=== PATIENT | female | born 1935 | race Caucasian/White ===

== ENCOUNTER 2017-10-13 11:24 | Inpatient (IN) | payer MEDICARE, MEDICAID ==
[2017-10-13 12:16] LABS: % BASOPHILS 0.4 % (0.0-2.0); % EOSINOPHILS 1.2 % (0.0-5.0); % LYMPHOCYTES 12.6 % (20.0-50.0); % MONOCYTES 3.1 % (2.0-10.0); % NEUTROPHILS 82.7 % (40.0-80.0); EOSINOPHILE ABSOLUTE 0.1 Th/cmm (0.1-0.4); HEMATOCRIT 37.4 % (41.0-60); HEMOGLOBIN 12.1 gm/dL (12-16); LYMPHOCYTE ABSOLUTE 0.9 Th/cmm (1.5-3.0); MEAN CELL VOLUME 87.2 fl (81-100); MEAN CORPUSCULAR HEMOGLOBIN 28.2 pg (27.0-31.0); MEAN CORPUSCULAR HGB CONC 32.3 pg (28.0-36.0); MEAN PLATELET VOLUME 7.8 fl; MONOCYTE ABSOLUTE 0.2 Th/cmm (0.3-1.0); NEUTROPHILE ABSOLUTE 6.3 Th/cmm (1.8-8.0); PLATELET COUNT 242 Th/cmm (150-400); RED BLOOD COUNT 4.28 Mil/cmm (3.80-5.20); RED CELL DISTRIBUTION WIDTH 12.5 % (11.5-20.0); WHITE BLOOD COUNT 7.5 Th/cmm (4.8-10.8)
--- NOTE | 2017-10-13 13:07 | ED Physician Chart ---
ED Chief Complaint/HPI - Patient Information Date Seen:: 10/13/17 Time Seen:: 11:35 Chief Complaint:: Agitation History of Present Illness:: onset x 2 days of agitation and hostile behavior; no reports of SIs, trauma, H/ As, neck pain, C/P, SOB, Abd. pain, A/N/V/D/C, fever, chills, or urinary s/s Allergies:: Allergies Allergy/AdvReac Type Severity Reaction Status Date / Time No Known Allergies Allergy Verified 10/13/17 11:34 Vitals:: Vital Signs - 8 hr 10/13/17 11:34 Temp 97.5 F HR 102 RR 17 BP 132/90 O2 Sat % 94 Historian:: Patient, EMS Review:: Nurse's Note Reviewed, Old Chart Reviewed, EMS run form Reviewed ED Review of Systems - Review of Systems General/Constitutional: No fever, No chills, No weight loss, No weakness, No diaphoresis, No edema, No loss of appetite Skin: No skin lesions, No rash, No bruising Head: No headache, No light-headedness Eyes: No loss of vision, No pain, No diplopia ENT: No earache, No nasal drainage, No sore throat, No tinnitus Neck: No neck pain, No swelling, No thyromegaly, No stiffness, No mass noted Cardio Vascular: No chest pain, No palpitations, No PND, No orthopnea, No edema Pulmonary: No SOB, No cough, No sputum, No wheezing GI: No nausea, No vomiting, No diarrhea, No pain, No melena, No hematochezia, No constipation, No hematemesis G/U: No dysuria, No frequency, No hematuria, No nacturia Operator Assistant I Cementing: No vaginal discharge, No abnormal vaginal bleed, No contraction Musculoskeletal: No bone or joint pain, No back pain, No muscle pain Endocrine: No polyuria, No polydipsia Psychiatric: Prior psych history, No depression, Anxiety, No suicidal ideation, No homicidal ideation, Auditory hallucination, No visual hallucination Hematopoietic: No bruising, No lymphadenopathy Allergic/Immuno: No urticaria, No angioedema Neurological: No syncope, No focal symptoms, No weakness, No paresthesia, No headache, No seizure, No dizziness, No confusion, No vertigo ED Past Medical History - Past Medical History Obtainable: Yes Past Medical History: Dyslipidemia, Thyroid disorder, Dementia Family History: Diabetes Melitus, HTN Social History: Non Smoker, No Alcohol, No Drug Use, Single, Care Facility Surgical History: None Psychiatricy History: Schizophrenia, Bipolar, Dementia Medication: Reviewed Family Medical History - Family Member Mother Living Status: ED Physical Exam - Physical Examination General/Constitutional: Awake, Well-developed, well-nourished, Alert, No distress, GCS 15, Non-toxic appearing, Ambulatory Head: Atraumatic Eyes: Lids, conjuctiva normal, PERRL, EOMI Skin: Nl inspection, No rash, No skin lesions, No ecchymosis, Well hydrated, No lymphadenopathy ENMT: External ears, nose nl, TM canals nl, Nasal exam nl, Lips, teeth, gums nl , Oropharynx nl, Tonsils nl Neck: Nontender, Full ROM w/o pain, No JVD, No nuchal rigidity, No bruit, No mass, No stridor Respiratory: Nl effort/Exclusion, Clear to Auscultation, No Wheeze/Rhonchi/Rales Cardio Vascular: RRR, No murmur, gallop, rubs, NL S1 S2, Carotid/Femoral/Distal pulses equal bilaterally GI: No tenderness/rebounding/guarding, No organomegaly, No hernia, Normal BS's, Nondistended, No mass/bruits, No McBurney tenderness : No CVA tenderness Extremities: No tenderness or effusion, Full ROM, normal strength in all extremities, No edema, Normal digits & nails Neuro/Psych: Alert/oriented, DTR's symmetric, Normal sensory exam, Normal motor strength, Judgement/insight normal, Mood normal, Normal gait, No focal deficits Other Neuro/Psych comments:: + Psychomotor Agitation; Mood/Affect: Stable; no SIs Misc: Normal back, No paraspinal tenderness ED Labs/Radiology/EKG Results - Lab Results Results: Laboratory Tests 10/13/17 12:00 WBC 7.5 RBC 4.28 Hgb 12.1 Hct 37.4 L MCV 87.2 MCH 28.2 MCHC Differential 32.3 RDW 12.5 Plt Count 242 MPV 7.8 Neutrophils % 82.7 H Lymphocytes % 12.6 L Monocytes % 3.1 Eosinophils % 1.2 Basophils % 0.4 Comments:: Cr: 2.1 - EKG Interpretations EKG Time:: 11:50 Rate & Rhythm: 74; NSR Comments:: non-specific st-t changes ED Septic Shock - . Is Septic Shock (SBP<90, OR Lactate>4 mmol\L) present?: No - <6hrs of presentation: Vital Signs: Vital Signs - 8 hr 10/13/17 11:34 Temp 97.5 F HR 102 RR 17 BP 132/90 O2 Sat % 94 ED Reassessment (Disposition) - Reassessment Reassessment Condition:: Improved - Diagnosis Diagnosis:: Medical Clearance; Bipolar Disorder; Psychosis; Agitation - Aftercare/Follow up Instructions Aftercare/Follow-Up Instructions:: Counseled pt regarding lab results/diagnosis & need follow up, Counseled pt & family regarding lab results/diagnosis & need follow up - Patient Disposition Discharge/Transfer:: Acute Care w/in this hosp Accepting Physician:: Dr. Mccormick Time Called:: 1300 Time Responded:: 13:00 Admitted to:: [facility] Spoke to:: Dr. Mccormick Admitting Medical Physician:: Dr. Mccormick Admitting Psych Physician:: Dr. Wilson Condition at Disposition:: Stable, Improved ED Discharge Plan - Patient Disposition
[2017-10-13 13:42] LABS: POTASSIUM SERUM 4.2 mEq/L (3.5-5.1); SODIUM SERUM 141 mEq/L (136-145)
[2017-10-13 13:43] LABS: ALB/GLOB RATIO 0.8 (1.0-1.8); ALBUMIN 3.6 gm/dL (3.7-5.3); ANION GAP 18.2 (7.0-16.0); BILIRUBIN,TOTAL 0.7 mg/dL (0.3-1.0); BUN - UREA NITROGEN 29 mg/dL (7-25); CHLORIDE 106 mEq/L (98-107); CREATININE - SERUM 2.1 mg/dL (0.6-1.2); GLUCOSE 181 mg/dL (70-105); SGOT 22 U/L (13-39); TOTAL PROTEIN,SERUM 8.2 gm/dL (6.0-8.3)
[2017-10-13 13:44] LABS: ALKALINE PHOSPHATASE 99 U/L (34-104); CHOLESTEROL 175 mg/dL (<200); HDL -HIGH DENSITY LIPOPROTEIN 38 mg/dL (23-92); SGPT/ALT 23 U/L (7-52); TRIGLYCERIDES 159 mg/dL (<150)
[2017-10-13 13:45] LABS: ACETAMINOPHEN < 10.0 ug/mL (10.0-30.0); SALICYLATES (ASPIRIN) < 25.0 mg/L (30.0-100.0)
[2017-10-13 16:21] VITALS: BP 132/90
[2017-10-13 16:38] LABS: A1C % 9.6 % (4.0-6.0)
--- NOTE | 2017-10-13 20:36 | Psychosocial Evaluation ---
DATE OF SERVICE: 10/13/2017 CHIEF COMPLAINT: "I am fine." HISTORY OF PRESENT ILLNESS: The patient is an 82-year-old female with a history of dementia and psychosis was referred from [facility] facility for increased anger outburst, agitation and confusion. The patient said she is sad because she is trying to see her father and nobody is listening to her. The patient is a poor historian and occasionally becomes argumentative. Interview was done mostly in Nigerien. Nigerien speaking nursing staff helped. PAST PSYCHIATRIC HISTORY: Dementia and psychosis. PAST MEDICAL HISTORY: Refer to H and P. PSYCHOSOCIAL HISTORY: The patient resides at a [facility] facility requires complete care. MENTAL STATUS EXAMINATION: The patient is superficial. Speech is fluent in Nigerien. Affect is dysphoric, irritable, some paranoia was noticed. The patient is talking to herself. The patient is oriented to person, knew she was in some kind of hospital, did not know the name of the hospital, thought she was 41 years old. The patient is confused. The patient is passively accepting treatment. The patient's weakness, lack of insight. ASSESSMENT: Major depressive disorder with psychosis; dementia, Alzheimer's type. MEDICAL: As per medical history. PLAN: We will admit the patient for hospitalization. We will start individual and group therapy and assess psychopharmacological intervention. ESTIMATED LENGTH OF STAY: 7 to 8 days. CRITERIA FOR DISCHARGE: Improved condition. No agitation, no psychosis and safe disposition, outpatient treatment plan. [facility]# [id number]
[2017-10-14] MEDS: Escitalopram Oxalate 5 mg Tab PO SCH (08:43)
[2017-10-14] MEDS: Multivitamin Tab PO SCH (08:44)
[2017-10-14] MEDS ORDERED: Non-Formulary Item 1 EA (Cranberry [Cranberry] 400 MG) PO SCH (10:00)
[2017-10-14] MEDS: Ferrous Sulfate 325 MG TAB PO SCH (10:55)
[2017-10-14] MEDS: Levothyroxine 0.025 Mg Tab PO SCH ×2 (11:39→17:17)
[2017-10-14] MEDS: LOVASTATIN 40 MG PO SCH (11:48)
[2017-10-14] MEDS: Non-Formulary Item 1 EA (Ascorbic Acid [Vitamin C] 500 MG) PO SCH (11:48)
[2017-10-14] MEDS ORDERED: Insulin Detemir 100 units/mL 10mL Vial SUBQ SCH (21:00)
--- NOTE | 2017-10-14 23:38 | Consultation ---
DATE OF CONSULTATION: INTERNAL MEDICINE CONSULT REFERRING PHYSICIAN: Dr. Bee. REASON FOR CONSULT: Medical management. HISTORY OF PRESENT ILLNESS: The patient is an 82-year-old female who lives at [facility] and who has the following medical problems, type 2 diabetes, chronic kidney disease, hypothyroidism, chronic anemia, dementia with behavioral disorder, and history of previous DVTs, who was transferred to the ED given agitation and inappropriate behavior for a couple of days. The patient is asleep, but arousable, but is not able to tell me any significant history. The patient has been admitted to [facility] for further management and care. PAST MEDICAL HISTORY: As noted above. PAST SURGERIES: Unknown. FAMILY HISTORY: Likely noncontributory to this admission. SOCIAL HISTORY: No tobacco, ETOH, or illicit drug usage. Currently, lives at a nursing home facility. ALLERGIES: NKDA. OUTPATIENT MEDICATIONS: Tylenol 650 q. 4 p.r.n. for pain, ascorbic acid 500 mg every day, cranberry capsule 400 every day, Colace 250 b.i.d., iron sulfate 325 every day, folic acid 1 mg every day, levothyroxine 25 mg every day, lovastatin 40 every day, Namenda 5 b.i.d. and tramadol 50 mg q. 6 p.r.n. for pain. REVIEW OF SYSTEMS: Unable to be done given patient's condition. PHYSICAL EXAMINATION: VITAL SIGNS: Temperature 98.4, pulse 66, respiratory rate 19 to 20, BP 132/79, saturating 99% on room air. GENERAL: Well-developed, well-nourished female. She is asleep, but arousable, but she is not able to provide any significant history. She is not oriented to time or place. HEAD AND NECK: Normocephalic, atraumatic. Pupils are reactive to light. Extraocular movements are intact. Oropharynx is moist and clear. NECK: There is no JVD or LAD. CARDIOVASCULAR: Regular rate with distant sounds. RESPIRATORY: Lungs are clear to auscultation bilaterally. ABDOMEN: Soft, supple, nontender, nondistended, normoactive bowel sounds. EXTREMITIES: Her lower extremities have no edema. NEUROLOGIC: Appears to be grossly intact and nonfocal. She is able to move all 4 extremities with equal force and strength. Cranial nerves 2-12 are within normal limits. LABORATORY DATA: CBC was essentially within normal limits. Hematocrit was 37.4. BUN 29, creatinine 2.1. The rest of the chemistry was normal. Glucose was 181. A1c 9.6. LFTs are within normal limits. Albumin 3.6. Triglycerides 159, cholesterol 175, LDL 109, and HDL 38. TSH within normal limits. Toxicology screen noted salicylates, acetaminophen, and alcohol were negative. DIAGNOSTICS: EKG sinus rhythm at a rate of 74, no acute findings. ASSESSMENT: 1. Acute psychiatric decompensation. 2. History of dementia with behavioral disorder. 3. History of chronic kidney disease. 4. Chronic anemia, likely secondary to above. 5. History of hypothyroidism - euthyroid prolapse. 6. History of type 2 diabetes out of control per A1c findings. 7. History of previous deep vein thrombosis. PLAN: The patient has been admitted to [facility] for further management and care. The patient will be kept on her current medications as scheduled. I will start the patient on Glucotrol at 5 mg b.i.d. and given her diabetes out of control, I will also start her on low-dose detemir. We will follow on a daily basis. JOB# [id number] DAVID
--- NOTE | 2017-10-15 01:24 | Progress Notes ---
DATE: 10/14/2017 SUBJECTIVE: The patient was seen, discussed with staff, chart reviewed, still superficial, talking to herself, remains confused, still with anger outburst and episodes of agitation. Insight is poor. Judgment is impaired. The patient also appears to be depressed, sad facial expression at times. The patient is still talking to people who were not there, thinking that something bad happened to her father and she ____ see him. ASSESSMENT: The patient is still with agitation. PLAN: We will continue supportive measure, continue stabilization, add risperidone 0.25 mg p.o. at bedtime, and monitor closely. JOB# [id number]
[2017-10-15] MEDS: Levothyroxine 0.025 Mg Tab PO SCH ×3 (06:29→18:19)
[2017-10-15] MEDS: Escitalopram Oxalate 5 mg Tab PO SCH (08:22)
[2017-10-15] MEDS: Multivitamin Tab PO SCH (08:24)
[2017-10-15] MEDS: Ferrous Sulfate 325 MG TAB PO SCH (08:25)
[2017-10-15] MEDS: Non-Formulary Item 1 EA (Ascorbic Acid [Vitamin C] 500 MG) PO SCH (08:32)
[2017-10-15] MEDS: LOVASTATIN 40 MG PO SCH (08:32)
--- NOTE | 2017-10-15 18:12 | Progress Notes ---
DATE: 10/15/2017 SUBJECTIVE: The patient was seen. Remains disorganized, guarded, still confused, some agitation, talking to herself, but her anger outbursts is little bit less today. The patient's appetite is fair. ASSESSMENT: The patient in psychotic phase. PLAN: Continue medication management and continue supportive measures. Continue Lexapro, risperidone and Namenda and monitor condition closely. JOB# [id number]
[2017-10-16] MEDS: Levothyroxine 0.025 Mg Tab PO SCH (06:35)
[2017-10-16] MEDS: Escitalopram Oxalate 5 mg Tab PO SCH (09:18)
[2017-10-16] MEDS: Multivitamin Tab PO SCH (09:19)
[2017-10-16] MEDS: Ferrous Sulfate 325 MG TAB PO SCH (09:19)
--- NOTE | 2017-10-16 09:21 | Consultation ---
DATE OF CONSULTATION: 10/15/2017 REQUESTING PHYSICIAN: Joel Salas MD. TYPE OF CONSULTATION: Psychology. HISTORY OF PRESENT ILLNESS: The following is by review of the medical record and patient self report. The patient is an 82-year-old female. According to the staff at the patient's facility, she is being admitted due to increased agitation, anger outbursts and confusion. Upon interview, the patient is stating that she needs to talk to her father. The patient became argumentative during the clinical interview. The patient is mostly Stateless speaking and a staff YOUTH PROBATION OFFICER assisted with interpretation. The patient denied any suicidal ideation, plan or intention or any wish to . The patient denies any hopelessness or helplessness. PAST MEDICAL HISTORY: Please see history and physical. PAST PSYCHIATRIC HISTORY: The patient has a history of dementia. CURRENT MEDICATIONS: Please see medication reconciliation. ALLERGIES: No known drug allergies. SUBSTANCE ABUSE HISTORY: Unavailable record. The patient did not answer this question. PSYCHOSOCIAL HISTORY: The patient is a resident of [facility] and is known to this radio script writer. The patient did not answer questions about occupational or educational history or presybeterian affiliation. However, she is a Nondenominational. MENTAL STATUS EXAMINATION: The patient appears to be her stated age. The patient's attitude is guarded and superficially cooperative. Speech is spontaneous and mostly in Stateless with some British. Eye contact is poor. Mood is irritable. Affect is sullen. Thought process shows to be confused and possibly delusional with some paranoid ideation. The patient is stating that she needs to talk to her father. The patient's behavior is passively accepting of treatment. Impulse control is poor. Concentration is poor. The patient was unable to sustain focus and attention and became tangential and at times answering with irrelevant information. The patient did not perform the memory assessment. Sensorium is alert and oriented to self only. Immediate and short term memory appeared to be impaired. Long-term memory seems to be impaired. This should be reevaluated. The patient did not participate in the interpretation of proverbs. Insight is poor. Judgment is compromised. DIAGNOSTIC IMPRESSION: AXIS I: 1. Major depressive disorder with psychosis; 2. Dementia with behavioral disturbance. AXIS II: Deferred. AXIS III: Please see history and physical. PLAN: The patient has been seen by Dr. Salas for psychiatric evaluation and management of the patient's psychotropic medications. We will provide individual therapy. This patient is known to this radio script writer from her detention facility and is under the care of a psychiatrist at her facility. We will provide coping strategies as well as motivational enhancement for the patient to become compliant with all aspects of her care and treatment. We will provide de-escalation as well as behavioral therapy to reduce the patient's anger outbursts and agitation prior to discharge. Thank you, Dr. Salas for this consult and the opportunity to participate in this patient's care. JOB# [id number] DAVID
[2017-10-16] MEDS: Non-Formulary Item 1 EA (Ascorbic Acid [Vitamin C] 500 MG) PO SCH (09:22)
[2017-10-16] MEDS: LOVASTATIN 40 MG PO SCH (09:22)
--- NOTE | 2017-10-16 22:27 | Progress Notes ---
DATE: 10/16/2017 PSYCHIATRIC PROGRESS NOTE SUBJECTIVE: Staff was spoken to. The patient is interviewed. Mood is noted to be irritable. Affect is constricted. The patient continues to be paranoid. The patient is getting easily frustrated and getting irritable. The patient has poor short as well as long-term memory deficits. No side effects to the medications are noted. The patient is screaming and yelling and needs to be redirected most of the time. No side effects to the medications are noted at this time. ASSESSMENT: The patient is still psychotic. PLAN: To continue the patient with the supportive therapy. Encouraged the patient to verbalize the concerns rather than to act out. JOB# [id number]
[2017-10-17] MEDS: Levothyroxine 0.025 Mg Tab PO SCH (06:51)
[2017-10-17] MEDS: Ferrous Sulfate 325 MG TAB PO SCH (09:42)
[2017-10-17] MEDS: Non-Formulary Item 1 EA (Ascorbic Acid [Vitamin C] 500 MG) PO SCH (09:42)
[2017-10-17] MEDS: Escitalopram Oxalate 5 mg Tab PO SCH (09:42)
[2017-10-17] MEDS: Multivitamin Tab PO SCH (09:43)
[2017-10-17] MEDS: LOVASTATIN 40 MG PO SCH (09:43)
--- NOTE | 2017-10-17 22:01 | Progress Notes ---
DATE: 10/17/2017 SUBJECTIVE: Staff was spoken to. The patient is interviewed. Mood is noted to be irritable. Affect is constricted. The patient is reluctant to comply with the medication. The patient has no insight into her illness. Coping skills at this time are noted to be very poor. ASSESSMENT: The patient is still grossly psychotic. PLAN: To encourage the patient to comply with the medication. The patient has been trying to be aggressive towards the roommate. The patient is going to be closely monitored at this time. JOB# [id number]
[2017-10-18] MEDS: Levothyroxine 0.025 Mg Tab PO SCH (06:49)
[2017-10-18] MEDS: Non-Formulary Item 1 EA (Ascorbic Acid [Vitamin C] 500 MG) PO SCH (17:27)
[2017-10-18] MEDS: Multivitamin Tab PO SCH (17:28)
[2017-10-18] MEDS: Ferrous Sulfate 325 MG TAB PO SCH (17:28)
[2017-10-18] MEDS: LOVASTATIN 40 MG PO SCH (17:28)
[2017-10-18] MEDS: Escitalopram Oxalate 5 mg Tab PO SCH (17:28)
--- NOTE | 2017-10-18 18:10 | Progress Notes ---
DATE: 10/18/2017 SUBJECTIVE: The patient was seen, discussed with staff, chart reviewed. Still forgetful, confused, irritability, some anger outburst however, she is taking her medications. Sleep and appetite are fair. Her insight is still poor. The patient is disorganized. The patient is oriented to person, not oriented to time or place. ASSESSMENT: The patient is still in psychotic phase, still confused, still irritable. PLAN: Continue medication management. Continue supportive measures. Continue stabilization. JOB# [id number]
[2017-10-19] MEDS: Levothyroxine 0.025 Mg Tab PO SCH (06:48)
[2017-10-19] MEDS: Ferrous Sulfate 325 MG TAB PO SCH (09:35)
[2017-10-19] MEDS: Multivitamin Tab PO SCH (09:35)
[2017-10-19] MEDS: Escitalopram Oxalate 5 mg Tab PO SCH (09:35)
[2017-10-19] MEDS: LOVASTATIN 40 MG PO SCH (09:36)
[2017-10-19] MEDS: Non-Formulary Item 1 EA (Ascorbic Acid [Vitamin C] 500 MG) PO SCH (09:36)
--- NOTE | 2017-10-19 19:14 | Progress Notes ---
DATE: 10/19/2017 SUBJECTIVE: The patient was seen, discussed with staff. Still anxious, irritable at times episodes talking to herself and at times refusing medications. Insight is poor. Judgment is impaired. ASSESSMENT: The patient is still highly agitated, still in psychotic phase, still confused. PLAN: Continue supportive measures, medication management. Change medicines. Use risperidone liquid 0.5 mg p.o. at bedtime. [facility]# [id number]
[2017-10-19] MEDS ORDERED: risperiDONE 1 mg/mL 30 mL Bottle PO SCH (21:00)
[2017-10-20] MEDS: Levothyroxine 0.025 Mg Tab PO SCH (06:35)
[2017-10-20] MEDS: Multivitamin Tab PO SCH (09:18)
[2017-10-20] MEDS: Escitalopram Oxalate 5 mg Tab PO SCH (09:18)
[2017-10-20] MEDS: Ferrous Sulfate 325 MG TAB PO SCH (09:19)
--- NOTE | 2017-10-20 17:19 | Progress Notes ---
DATE: 10/20/2017 SUBJECTIVE: The patient was seen, discussed with staff. Still disorganized, paranoid. Still confused, still have some anger outbursts, but less frequently now. She is compliant with her medications for the past 24 hours. She is easier to redirect. Insight is still limited. PLAN: We will continue stabilization. Continue medication management. Continue supportive measures. JOB# [id number]
[2017-10-21] MEDS: Levothyroxine 0.025 Mg Tab PO SCH (06:49)
[2017-10-21] MEDS: Ferrous Sulfate 325 MG TAB PO SCH ×2 (09:25)
[2017-10-21] MEDS: Escitalopram Oxalate 5 mg Tab PO SCH (09:25)
[2017-10-21] MEDS: Multivitamin Tab PO SCH ×3 (09:25→13:02)
[2017-10-22] MEDS: Levothyroxine 0.025 Mg Tab PO SCH (06:35)
[2017-10-22] MEDS: Ferrous Sulfate 325 MG TAB PO SCH (09:10)
[2017-10-22] MEDS: Escitalopram Oxalate 5 mg Tab PO SCH (09:10)
[2017-10-22] MEDS: Multivitamin Tab PO SCH (09:10)
--- NOTE | 2017-10-22 21:30 | Progress Notes ---
DATE: 10/22/2017 SUBJECTIVE: The patient remains irritable, anxious, still angry at times, still confused, forgetful. The patient having some episodes where she tries to hit staff, but less frequent compared to time of admission. ASSESSMENT: The patient is in a psychotic phase. PLAN: Continue medication management. The patient was started on risperidone. She was Lexapro. JOB# [id number]
[2017-10-23] MEDS: Levothyroxine 0.025 Mg Tab PO SCH (06:48)
[2017-10-23] MEDS: Escitalopram Oxalate 5 mg Tab PO SCH (08:39)
[2017-10-23] MEDS: Ferrous Sulfate 325 MG TAB PO SCH (08:41)
[2017-10-23] MEDS: Multivitamin Tab PO SCH (08:41)
[2017-10-23] MEDS: LOVASTATIN 40 MG PO SCH (08:43)
--- NOTE | 2017-10-23 17:08 | Progress Notes ---
DATE: 10/23/2017 SUBJECTIVE: Staff was spoken to. The patient is interviewed. Mood is noted to be irritable. Affect is constricted. Continues to be very irritable and angry. The patient has been getting easily frustrated with the roommate. The patient has no insight into her illness, tends to scream and yell. The patient is currently on risperidone to 0.5 mg at bedtime and Lexapro 0.5 mg. The patient has been coping well so far, no side effects to the medications are noted. ASSESSMENT: The patient is still impulsive. PLAN: To continue the patient's current medications and follow up with the supportive therapy. JOB# [id number]
[2017-10-24] MEDS: Levothyroxine 0.025 Mg Tab PO SCH (06:39)
[2017-10-24] MEDS: Escitalopram Oxalate 5 mg Tab PO SCH (09:53)
[2017-10-24] MEDS: Ferrous Sulfate 325 MG TAB PO SCH (09:53)
[2017-10-24] MEDS: LOVASTATIN 40 MG PO SCH (09:53)
[2017-10-24] MEDS: Multivitamin Tab PO SCH (09:54)
--- NOTE | 2017-10-24 23:29 | Progress Notes ---
DATE: 10/24/2017 SUBJECTIVE: Staff was spoken to. The patient is interviewed. Mood is noted to be irritable. Affect is constricted. The patient is still isolative and withdrawn with very limited participation in the groups. The patient is currently on escitalopram 5 mg and has been able to tolerate the medications. The patient is also on 0.5 mg of the Risperdal and is able to comply with the treatment. No side effects to the medications are noted. ASSESSMENT: The patient is still depressed and paranoid. PLAN: To continue the patient with the supportive therapy and follow. JOB# [id number]
[2017-10-25] MEDS: Levothyroxine 0.025 Mg Tab PO SCH (10:00)
[2017-10-25] MEDS: Ferrous Sulfate 325 MG TAB PO SCH (10:00)
[2017-10-25] MEDS: Multivitamin Tab PO SCH (10:00)
[2017-10-25] MEDS: Escitalopram Oxalate 5 mg Tab PO SCH (10:00)
[2017-10-25] MEDS: LOVASTATIN 40 MG PO SCH (10:11)
--- NOTE | 2017-10-25 19:09 | Discharge Summary ---
DATE OF DISCHARGE: 10/25/2017 REASON FOR HOSPITALIZATION: Major depressive disorder with psychosis; dementia, Alzheimer's type. HISTORY OF PRESENT ILLNESS: The patient is an 82-year-old female from alf for increased anger outburst, agitation, feeling sad. I was talking to herself, thinking that her father is listening to her, was more confused. Apparently has been deteriorating over the period of several days. The patient was evaluated and was admitted. HOSPITALIZATION COURSE: Medications were implemented. Supportive measures were provided. The patient responded favorably to treatment and she was given Lexapro 5 mg daily. Also, she was continued with Namenda and then risperidone was added because the patient was noted to have episodes where she is talking to herself and having anger outburst. Condition improved over time, agitation resolved, but she continued to be forgetful, so on 10/25/2017 the patient was felt to be at baseline. She was discharged back to her facility. FINAL DIAGNOSES: Major depressive disorder with psychotic features, dementia, Alzheimer's type. MEDICAL: Hypertension, generalized debility, thyroid disorder, dyslipidemia. DISPOSITION: The patient was discharged back to alf facility. CONDITION UPON DISCHARGE: No agitation or aggressive behavior. Fair sleep and appetite. The patient, however, continues to be forgetful. EXPECTED COURSE OF RECOVERY: The patient with chronic condition. [facility]# [id number]
== END 2017-10-25 20:02 | disposition home or self-care (01) | DRG 885 ==
LOC: ER 11:24 → GERO2 15:00 → GERO 10-15 17:49
DX: F32.3 Major depressive disorder, single episode, severe with psychotic features (principal); F02.81 Dementia in other diseases classified elsewhere, unspecified severity, with behavioral disturbance; N18.9 Chronic kidney disease, unspecified; E11.22 Type 2 diabetes mellitus with diabetic chronic kidney disease; D64.9 Anemia, unspecified; F23 Brief psychotic disorder; G30.9 Alzheimer's disease, unspecified; E78.5 Hyperlipidemia, unspecified; R53.81 Other malaise; E07.9 Disorder of thyroid, unspecified; I12.9 Hypertensive chronic kidney disease with stage 1 through stage 4 chronic kidney disease, or unspecified chronic kidney disease; E03.9 Hypothyroidism, unspecified; Z86.718 Personal history of other venous thrombosis and embolism
CPT/HCPCS: 36415-UA; 80053-TC; 80061-TC; 80320-TC; 80329-TC; 82948-90; 83036-90; 84443-TC; 85025-TC; 86592-TC; 93005; Z7610